=== PATIENT | female | born 1985 | race Caucasian/White ===

== ENCOUNTER → 2017-05-17 | Outpatient (CLI) | payer BC ==
--- NOTE | 2017-05-17 12:33 | RAD ---
Indication abdominal pain for several months. Bloating following eating. Axial images to the abdomen and pelvis were obtained. The examination is limited. No IV or gastrointestinal contrast was administered. No prior imaging is available. The lung bases are clear. A definite significant finding in the liver is not seen. There is a low-density 1 cm mass in the right lobe likely reflecting a cyst. The gallbladder is grossly normal. No splenic abnormality is seen. Considerable food material is noted within the stomach. No pancreatic abnormality is seen. No adrenal masses are seen and the kidneys appear normal. No mass inflammatory process or acute finding within the abdomen is apparent. In the pelvis no focal mass or inflammatory process is seen. An IUD is noted. IMPRESSION: No acute or definite significant finding seen in the abdomen or pelvis PQRS Compliance Statement: One or more of the following individualized dose reduction techniques were utilized for this examination: 1. Automated exposure control 2. Adjustment of the mA and/or kV according to patient size 3. Use of iterative reconstruction technique
== END | disposition home or self-care (01) ==
LOC: CT 11:50
PROVIDERS: ATTEND Nurse Practitioner Adult Health
DX: K76.89 Other specified diseases of liver (principal); R14.0 Abdominal distension (gaseous); Z97.5 Presence of (intrauterine) contraceptive device
CPT/HCPCS: 74176

== ENCOUNTER 2017-09-12 23:38 | Emergency (ER) | payer SELFPAY ==
[~2017-09-12] VITALS: Ht 172.7 cm; Wt 55.9 kg
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
[2017-09-13] MEDS ORDERED: PROCHLORPERAZINE 10 MG/2 ML VIAL. IV ONE (01:15)
[2017-09-13] MEDS ORDERED: diphenhydrAMINE 50 MG/ML VIAL IVP ONE (01:15)
[2017-09-13] MEDS ORDERED: IV NORMAL SALINE 1,000ML 1,000 ML IV ONE (01:15)
[2017-09-13 01:46] LABS: BASO # 0.1 x10^3/uL (0.0-0.2); BASO % 1 % (0-3); EOS # 0.4 x10^3/uL (0.0-0.7); EOS % 6 % (0-3); HEMATOCRIT 41.6 % (36.0-47.0); HEMOGLOBIN 14.2 g/dL (12.0-15.5); LYMPH # 1.7 x10^3/uL (1.0-4.8); LYMPH % 25 % (24-48); MEAN CORPUSCULAR HEMOGLOBIN 30 pg (25-35); MEAN CORPUSCULAR HGB CONC 34 g/dL (31-37); MEAN CORPUSCULAR VOLUME 89 fL (79-100); MONO # 0.6 x10^3/uL (0.0-1.1); MONO % 9 % (0-9); NEUT # 4.1 x10^3uL (1.8-7.7); NEUT % 59 % (31-73); PLATELET COUNT 238 x10^3/uL (140-400); RED BLOOD COUNT 4.69 x10^6/uL (3.50-5.40); RED CELL DISTRIBUTION WIDTH 12.8 % (11.5-14.5); WHITE BLOOD COUNT 6.9 x10^3/uL (4.0-11.0)
[2017-09-13 01:52] LABS: BACTERIA,URINE 0 /HPF (0-FEW); BILIRUBIN,URINE NEG (NEG); CLARITY,URINE CLEAR; COLOR,URINE YELLOW; GLUCOSE,URINE NEG (NEG); NITRITE,URINE NEG (NEG); RBC,URINE 0 /HPF (0-2); SQUAMOUS EPITHELIAL CELL,UR MOD /LPF; UROBILINOGEN,URINE 0.2 mg/dL (0.2 mg/dL); WBC,URINE OCC /HPF (0-4)
[2017-09-13 01:53] LABS: U PREG PATIENT NEGATIVE (NEG)
[2017-09-13 01:58] LABS: ALBUMIN 3.9 g/dL (3.4-5.0); ALBUMIN/GLOBULIN RATIO 1.1 (1.0-1.7); CREATININE 0.7 mg/dL (0.6-1.0); GFR 95.8; MAGNESIUM 2.2 mg/dL (1.8-2.4); POTASSIUM 4.1 mmol/L (3.5-5.1); TOTAL BILIRUBIN 0.5 mg/dL (0.2-1.0); TOTAL PROTEIN 7.4 g/dL (6.4-8.2)
[2017-09-13 02:45] VITALS: BP 97/63
== END 2017-09-13 03:03 | disposition home or self-care (01) ==
LOC: ER 23:38
DX: R51 Headache (principal); M79.1 Myalgia; R20.2 Paresthesia of skin; E11.9 Type 2 diabetes mellitus without complications
CPT/HCPCS: 36415; 80053; 81001; 81025; 82947; 83735; 85025; 96361; 96374; 96375; 99284; J0780; J1200; J7030

== ENCOUNTER 2018-05-06 21:40 | Emergency (ER) | payer MEDICAID ==
[~2018-05-06] VITALS: Ht 180.3 cm; Wt 67.1 kg
[2018-05-06 22:10] VITALS: BP 116/77
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
[2018-05-06] MEDS ORDERED: NAPROXEN 500 MG TABLET ONE (23:08)
[2018-05-06] MEDS ORDERED: NAPROXEN 500 MG TABLET PO ONE (23:30)
== END 2018-05-06 23:05 | disposition home or self-care (01) ==
LOC: ER 21:40
DX: S60.222A Contusion of left hand, initial encounter (principal); E11.9 Type 2 diabetes mellitus without complications; X58.XXXA Exposure to other specified factors, initial encounter; Y93.89 Activity, other specified; Y92.89 Other specified places as the place of occurrence of the external cause; Y99.8 Other external cause status
CPT/HCPCS: 73130; 99284